=== PATIENT | female | born 1945 | race Caucasian/White ===

== ENCOUNTER 2018-01-19 11:21 | Outpatient (CLI) | payer MEDICARE, BC | END 2018-01-19 11:22 | disposition home or self-care (01) | LOC: BICMAMMO 11:21 | PROVIDERS: ATTEND Obstetrics & Gynecology | DX: Z12.31 Encounter for screening mammogram for malignant neoplasm of breast (principal); Z86.000 Personal history of in-situ neoplasm of breast | CPT/HCPCS: 77063; 77067 ==

== ENCOUNTER 2018-08-27 11:03 | Outpatient (CLI) | payer MEDICARE, BC ==
--- NOTE | 2018-08-27 13:31 | BD ---
FDEXA BONE DENSITY STUDY History: [ EXAM: DEXA bone density examination HISTORY: 73-year-old postmenopausal female for screening COMPARISON: None FINDINGS: L1--bone mineral density 0.768 g/sq cm; T score -2.0 L2--bone mineral density 0.986 g/sq cm; T score -0.4 L3--bone mineral density 0.934 g/sq cm; T score -1.4 L4--bone mineral density 0.934 g/sq cm; T score -1.2 Total L1-L4--bone mineral density 0.911 g/sq cm; T score -1.2 Left femoral neck--bone mineral density0.645; T score -1.8 Total proximal left femur--bone mineral density 0.841; T score -0.8 IMPRESSION: Osteopenia. This patient has a 10 year WHO fracture risk of a major osteoporotic fracture of 11% and of a hip fracture of 2.1%.
== END 2018-08-27 11:04 | disposition home or self-care (01) ==
LOC: BICMAMMO 11:03
PROVIDERS: ATTEND Internal Medicine
DX: M85.89 Other specified disorders of bone density and structure, multiple sites (principal)
CPT/HCPCS: 77080

== ENCOUNTER 2018-12-10 10:04 | Outpatient (CLI) | payer MEDICARE, BC ==
[2018-12-10] MEDS ORDERED: Lidocaine 2% PF 100 mg/5 ml Syringe ONE (11:11)
[2018-12-10] MEDS ORDERED: Sodium Chloride 0.9% 15 ML NEB ONE (11:11)
--- NOTE | 2018-12-10 11:43 | HP ---
HISTORY OF PRESENT ILLNESS: Ms. Kenia Law is a very pleasant 73-year-old, who presents to the [facility] for evaluation of an ulceration of the left lateral lower leg. The patient states that 3 to 5 weeks ago, she hit her left lateral lower leg against the pedal of a bike. She states that she has been treating the wound with dressing changes of antibiotic ointment followed by a Band-Aid. The patient's medical history is significant for diabetes mellitus type 2 and polymyalgia rheumatica. The patient is presently taking prednisone at a dosage of 5 mg per day. The patient was placed on a prednisone taper by Dr. Porter. The patient was referred to the Wound Center by Dr. Porter on 11/30/2018. PAST MEDICAL HISTORY: 1. Hypertension. 2. PMR. 3. Diabetes mellitus. 4. Solitary kidney. 5. Hypothyroidism. 6. Gastroesophageal reflux disease. 7. Fibromyalgia. 8. History of breast carcinoma. PAST SURGICAL HISTORY: 1. Cholecystectomy. 2. Breast biopsy. 3. Right partial mastectomy/sentinel node biopsy. 4. Sinus surgery. MEDICATIONS: 1. Glipizide. 2. Norvasc. 3. Levothyroxine. 4. Prednisone. 5. Atorvastatin. 6. Vitamin D. 7. Biotin. 8. Vitamin C. ALLERGIES: LEVAQUIN. SOCIAL HISTORY: Social history is significant for tobacco use of one-fourth of a pack of cigarettes per day for 10 years. The patient states that she stopped smoking in 1989. The patient admits to only the rare consumption of alcohol. FAMILY HISTORY: Family history is negative for diabetes mellitus or coronary artery disease. PHYSICAL EXAMINATION: VITAL SIGNS: Temperature 97.6, pulse 85, respirations 19, and blood pressure 142/63. Accu-Chek 97. GENERAL: A 73-year-old female sitting on table in examination room, in no acute distress. HEENT: Normocephalic and atraumatic. NECK: No nuchal rigidity. CHEST: Clear to auscultation. CV: Regular rate and rhythm. ABDOMEN: Soft. EXTREMITIES: An ulceration of the left lateral lower leg is present. The dimensions of the wound are approximately 1.1 x 1.1 cm. Granulation tissue is present within the wound margins. Necrotic and nonviable tissue present within the wound margins was debrided with an excisional full-thickness debridement with the use of scissors and a curette. No purulent drainage is associated with the wound. No erythema of the skin surrounding the wound is present. No maceration of the skin of the periwound is noted. A dorsalis pedis pulse is palpable on the left. A posterior tibial pulse is also palpable on the left. No significant edema of the left foot or lower leg is present on exam today. Varicosities are noted over the right and left lower legs. Post debridement measurements were approximately 1.1 x 1.0 cm. NEUROLOGIC: Grossly nonfocal. ASSESSMENT AND PLAN: 1. Varicose veins of lower extremities with ulcer. Medihoney alginate, followed by an ABD and the 3M Coban 2-layer compression system will be applied to the ulceration today. No antibiotics will be prescribed today based upon the appearance of the wound. I will see Ms. Law again in 1 week. The patient has been instructed to leave the dressings applied in clinic today intact until her followup visit. The patient understands and is in agreement with the preceding treatment plan. 2. Hypertension. 3. Polymyalgia rheumatica. 4. Diabetes mellitus. 5. Solitary kidney. 6. Hypothyroidism. 7. Gastroesophageal reflux disease. 8. Fibromyalgia. 9. History of breast carcinoma. Job ID: [id number]
== END 2018-12-10 10:05 | disposition home or self-care (01) ==
LOC: WCC 10:04
PROVIDERS: ATTEND Family Medicine
DX: I83.892 Varicose veins of left lower extremity with other complications (principal); L97.929 Non-pressure chronic ulcer of unspecified part of left lower leg with unspecified severity; I10 Essential (primary) hypertension; M35.3 Polymyalgia rheumatica; E11.9 Type 2 diabetes mellitus without complications; Q60.0 Renal agenesis, unilateral; K21.9 Gastro-esophageal reflux disease without esophagitis; E03.9 Hypothyroidism, unspecified; M79.7 Fibromyalgia; Z85.3 Personal history of malignant neoplasm of breast
CPT/HCPCS: A4218; J2001

== ENCOUNTER 2018-12-17 10:23 | Outpatient (CLI) | payer MEDICARE, BC ==
--- NOTE | 2018-12-17 11:23 | PRG ---
DATE OF SERVICE: 12/17/2018 HISTORY: Ms. Kenia Law is a very pleasant 73-year-old, who presents to the [facility]ound Center for evaluation of an ulceration of the left lateral lower leg. The patient stated at the time of her initial presentation to the Wound Center that 3 to 5 weeks previously, she hit her left lateral lower leg against the paddle of a bike. She stated that she had been treating the wound with dressing changes of antibiotic ointment followed by a Band-Aid. The patient's medical history is significant for diabetes mellitus type 2 and polymyalgia rheumatica. The patient is currently taking prednisone at a dosage of 5 mg per day. The patient was placed on a prednisone taper by Dr. Porter. The patient was referred to the Wound Center by Dr. Porter on 11/30/2018. After being seen in the Wound Center, the ulceration was dressed with Medihoney alginate, an ABD, and the 3M Coban 2 Layer Compression System. PHYSICAL EXAMINATION: VITAL SIGNS: Temperature 97.6, pulse 88, respirations 18, blood pressure 149/70. Accu-Chek 163. EXTREMITIES: An ulceration of the left lateral lower leg is present, which measures approximately 0.9 x 1.0 cm. The dimensions of the wound at the time of the patient's visit on 12/10/2018 were approximately 1.1 x 1.1 cm. Granulation tissue is present within the wound margins. Necrotic and nonviable tissue present within the wound margins was debrided with an excisional full-thickness debridement with the use of scissors and a curette. No purulent drainage is associated with the wound. No cellulitis of the left lateral lower leg is appreciated. No maceration of the skin of the periwound is noted. No significant edema of the left foot or lower leg is present on exam today. ASSESSMENT AND PLAN: 1. Varicose veins of lower extremities with ulcer. Medihoney alginate, followed by an ABD and the 3M Coban 2 Layer Compression System will be applied to the ulceration today. Webril will be utilized at the time of dressing changes as needed. I will see Ms. Law again in 1 week. The patient has been reminded to leave the dressings applied in clinic today intact until her followup visit. 2. Hypertension. 3. Polymyalgia rheumatica. 4. Diabetes mellitus. 5. Solitary kidney. 6. Hypothyroidism. 7. Gastroesophageal reflux disease. 8. Fibromyalgia. 9. History of breast carcinoma. Job ID: [id number]
[2018-12-17] MEDS ORDERED: Sodium Chloride 0.9% 15 ML NEB ONE (15:00)
[2018-12-17] MEDS ORDERED: Lidocaine 4% Topical Sol 50 ML BOT ONE (15:00)
== END 2018-12-17 10:24 | disposition home or self-care (01) ==
LOC: WCC 10:23
PROVIDERS: ATTEND Family Medicine
DX: I83.029 Varicose veins of left lower extremity with ulcer of unspecified site (principal); E11.622 Type 2 diabetes mellitus with other skin ulcer; L97.929 Non-pressure chronic ulcer of unspecified part of left lower leg with unspecified severity; M35.3 Polymyalgia rheumatica; E03.9 Hypothyroidism, unspecified; Q60.0 Renal agenesis, unilateral; K21.9 Gastro-esophageal reflux disease without esophagitis; M79.7 Fibromyalgia; Z85.3 Personal history of malignant neoplasm of breast
CPT/HCPCS: 11042; 36416; A4218

== ENCOUNTER 2018-12-24 14:18 | Outpatient (CLI) | payer MEDICARE, BC ==
--- NOTE | 2018-12-24 10:59 | PRG ---
DATE OF SERVICE: 12/24/2018 HISTORY: Ms. Kenia Law is a very pleasant 73-year-old, who presents to the wound center for evaluation of an ulceration of the left lateral lower leg. The patient stated at the time of her initial presentation to the wound center that 3 to 5 weeks previously, she hit her left lateral lower leg against the pedal of a bike. She stated that she had been treating the wound with dressing changes of antibiotic ointment followed by a Band-Aid. The patient's medical history significant for diabetes mellitus type 2 and polymyalgia rheumatica. The patient previously stated that she was taking prednisone at a dosage of 5 mg per day. The patient was placed on a prednisone taper by Dr. Porter. The patient was referred to the wound center by Dr. Porter on 11/30/2018. After being seen in the wound center, the ulceration was dressed with Medihoney alginate, an ABD, and the 3M Coban 2 Layer Compression System. PHYSICAL EXAMINATION: VITAL SIGNS: Temperature 98.0, pulse 91, respirations 19, and blood pressure 134/63. Accu-Chek 172. EXTREMITIES: An ulceration of the left lateral lower leg is present, which measures approximately 0.7 x 0.5 cm. The dimensions of the wound at the time of the patient's visit on 12/17/2018 were approximately 0.9 x 1.0 cm. Granulation tissue is present within the wound margins. Necrotic and nonviable tissue present within the wound margins was debrided with an excisional full-thickness debridement. No purulent drainage is associated with the wound. No cellulitis of the left lateral lower leg is appreciated. No maceration of the skin of the periwound is noted. No significant edema of the left foot or lower leg is present on today's exam. ASSESSMENT AND PLAN: 1. Varicose veins of lower extremity with ulcer. Medihoney alginate, followed by an ABD, Webril, and the 3M Coban 2 Layer Compression System will be applied to the ulceration today. The patient is to discontinue the compression wrap in 1 week and begin dressing changes of Medihoney alginate if a wound is still present. The patient is to perform these dressing changes on a daily basis after cleansing and irrigation until the wound has completely healed. The patient has been reassured that the wound has almost healed completely and she will therefore be discharged from clinic today with followup on an as-needed basis. 2. Hypertension. 3. Polymyalgia rheumatica. 4. Diabetes mellitus. 5. Solitary kidney. 6. Hypothyroidism. 7. Gastroesophageal reflux disease. 8. Fibromyalgia. 9. History of breast carcinoma. Job ID: [id number]
[2018-12-24] MEDS ORDERED: Sodium Chloride 0.9% 15 ML NEB ONE (15:00)
== END 2018-12-24 14:19 | disposition home or self-care (01) ==
LOC: WCC 14:18
PROVIDERS: ATTEND Family Medicine
DX: I83.029 Varicose veins of left lower extremity with ulcer of unspecified site (principal); I10 Essential (primary) hypertension; M35.3 Polymyalgia rheumatica; E11.9 Type 2 diabetes mellitus without complications; Q60.0 Renal agenesis, unilateral; K21.9 Gastro-esophageal reflux disease without esophagitis; M79.7 Fibromyalgia; Z85.3 Personal history of malignant neoplasm of breast
CPT/HCPCS: 36416; A4218

== ENCOUNTER 2019-01-24 11:37 | Outpatient (CLI) | payer MEDICARE, BC ==
--- NOTE | 2019-01-24 13:24 | MMO ---
Bilateral MAMMO Bilat Screen [facility]. CLINICAL HISTORY: Patient is 73 years old and is seen for screening. The patient has no family history of breast cancer. The patient has a history of Excisional Biopsy procedure revealed invasive and in-situ right breast carcinoma in November, and Excisional Biopsy procedure revealed invasive and in-situ right breast carcinoma in November,. The patient has a history of right Lumpectomy in November, - malignant. VIEWS: The views performed were: bilateral craniocaudal with tomosynthesis and bilateral mediolateral oblique with tomosynthesis. FILMS COMPARED: The present examination has been compared to prior imaging studies performed at [facility] on 12/19/2014, 12/21/2015, 12/21/2016 and 01/19/2018. MAMMOGRAM FINDINGS: There are scattered fibroglandular densities. There are benign appearing calcifications seen in both breasts. There are no suspicious masses, suspicious calcifications, or new areas of architectural distortion. IMPRESSION: THERE IS NO MAMMOGRAPHIC EVIDENCE OF MALIGNANCY. A ROUTINE FOLLOW-UP MAMMOGRAM IN 1 YEAR IS RECOMMENDED. THE RESULTS OF THIS EXAM WERE SENT TO THE PATIENT. ACR BI-RADS Category 2 - Benign finding MAMMOGRAPHY NOTE: 1. A negative mammogram report should not delay a biopsy if a dominant of clinically suspicious mass is present. 2. Approximately 10% to 15% of breast cancers are not detected by mammography. 3. Adenosis and dense breasts may obscure an underlying neoplasm. Reported by: MARGO DOWNEY MD Electonically Signed: [id number]
== END 2019-01-24 11:38 | disposition home or self-care (01) ==
LOC: BICMAMMO 11:37
PROVIDERS: ATTEND Obstetrics & Gynecology
DX: Z12.31 Encounter for screening mammogram for malignant neoplasm of breast (principal)
CPT/HCPCS: 77063; 77067

== ENCOUNTER 2020-01-28 08:55 | Outpatient (CLI) | payer MEDICARE, BC ==
--- NOTE | 2020-01-28 12:00 | MMO ---
Bilateral MAMMO Bilat Screen [facility]. CLINICAL HISTORY: Patient is 75 years old and is seen for screening. The patient has no family history of breast cancer. The patient has a history of Excisional biopsy procedure revealed invasive and in-situ right breast carcinoma in November, and Excisional biopsy procedure revealed invasive and in-situ right breast carcinoma in November,. The patient has a history of right Lumpectomy in November, - malignant. VIEWS: The views performed were: bilateral craniocaudal with tomosynthesis and bilateral mediolateral oblique with tomosynthesis. FILMS COMPARED: The present examination has been compared to prior imaging studies performed at [facility] on 12/21/2015, 12/21/2016, 01/19/2018 and 01/24/2019. This study has been interpreted with the assistance of computer-aided detection. MAMMOGRAM FINDINGS: There are scattered fibroglandular densities. Benign calcifications are noted bilaterally. There are no suspicious masses, suspicious calcifications, or new areas of architectural distortion. IMPRESSION: THERE IS NO MAMMOGRAPHIC EVIDENCE OF MALIGNANCY. A ROUTINE FOLLOW-UP MAMMOGRAM IN 1 YEAR IS RECOMMENDED. THE RESULTS OF THIS EXAM WERE SENT TO THE PATIENT. ACR BI-RADS Category 2 - Benign finding MAMMOGRAPHY NOTE: 1. A negative mammogram report should not delay a biopsy if a dominant of clinically suspicious mass is present. 2. Approximately 10% to 15% of breast cancers are not detected by mammography. 3. Adenosis and dense breasts may obscure an underlying neoplasm. Reported by: EVITA LEBRON MD Electonically Signed: [id number]
== END 2020-01-28 08:56 | disposition home or self-care (01) ==
LOC: BICMAMMO 08:55
PROVIDERS: ATTEND Obstetrics & Gynecology
DX: Z12.31 Encounter for screening mammogram for malignant neoplasm of breast (principal); Z91.89 Other specified personal risk factors, not elsewhere classified; Z85.3 Personal history of malignant neoplasm of breast; Z98.890 Other specified postprocedural states
CPT/HCPCS: 77063; 77067

== ENCOUNTER 2021-01-29 09:07 | Outpatient (CLI) | payer MEDICARE, BC | END 2021-01-29 09:08 | disposition home or self-care (01) | LOC: BICMAMMO 09:07 | PROVIDERS: ATTEND Obstetrics & Gynecology | DX: Z12.31 Encounter for screening mammogram for malignant neoplasm of breast (principal); Z85.3 Personal history of malignant neoplasm of breast; Z98.890 Other specified postprocedural states | CPT/HCPCS: 77063; 77067 ==

== ENCOUNTER 2022-01-31 08:42 | Outpatient (CLI) | payer MEDICARE, BC | END 2022-01-31 08:43 | disposition home or self-care (01) | LOC: BICMAMMO 08:42 | PROVIDERS: ATTEND Obstetrics & Gynecology | DX: Z12.31 Encounter for screening mammogram for malignant neoplasm of breast (principal); Z98.890 Other specified postprocedural states; Z85.3 Personal history of malignant neoplasm of breast | CPT/HCPCS: 77063; 77067 ==

== ENCOUNTER 2023-09-26 10:28 | Outpatient (CLI) | payer MEDICARE, BC ==
[~2023-09-26 10:28] MED LIST: Iopamidol 370 76% 100 ML VIAL ONE
== END 2023-09-26 10:29 | disposition home or self-care (01) ==
LOC: BICCT 10:28
PROVIDERS: ATTEND Physician Assistant Medical
DX: K86.2 Cyst of pancreas (principal); K57.30 Diverticulosis of large intestine without perforation or abscess without bleeding; K59.00 Constipation, unspecified; R10.30 Lower abdominal pain, unspecified; N28.1 Cyst of kidney, acquired; R91.1 Solitary pulmonary nodule; Z90.5 Acquired absence of kidney
CPT/HCPCS: 74177; 82565; Q9967

== ENCOUNTER 2024-04-11 11:49 | Outpatient (CLI) | payer MEDICARE, BC | END 2024-04-11 11:50 | disposition home or self-care (01) | LOC: BICMAMMO 11:49 | PROVIDERS: ATTEND Obstetrics & Gynecology | DX: Z12.31 Encounter for screening mammogram for malignant neoplasm of breast (principal); Z86.000 Personal history of in-situ neoplasm of breast; Z98.890 Other specified postprocedural states | CPT/HCPCS: 77063; 77067 ==

== ENCOUNTER 2025-04-10 13:36 | Outpatient (CLI) | payer MEDICARE, BC | END 2025-04-10 13:37 | disposition home or self-care (01) | LOC: RAD 13:36 | PROVIDERS: ATTEND Internal Medicine | DX: R06.00 Dyspnea, unspecified (principal) | CPT/HCPCS: 71046 ==